=== PATIENT | female | born 1955 | race Caucasian/White ===

== ENCOUNTER 2016-12-16 17:15 | Emergency (ER) | payer BC ==
[2016-12-16 19:30] VITALS: BP 139/74
--- NOTE | 2016-12-16 19:46 | UC ---
Ear Complaint HPI - HPI Summary HPI Summary: ears plugged x weeks r>l no uri symtpoms - History of Current Complaint Chief Complaint: UCEar Stated Complaint: EAR PAIN Time Seen by Provider: 12/16/16 19:38 Hx Obtained From: Patient Onset/Duration: Gradual Onset, Lasting Weeks Severity Currently: None Pain Intensity: 0 Pain Scale Used: 0-10 Numeric Aggravating Factors: Nothing Alleviating Factors: Nothing Associated Signs/Symptoms: Positive: Hearing Loss - Allergies/Home Medications Allergies/Adverse Reactions: Allergies Allergy/AdvReac Type Severity Reaction Status Date / Time No Known Allergies Allergy Verified 12/16/16 19:30 Home Medications: Home Medications NK [No Home Medications Reported] 12/16/16 [History Confirmed 12/16/16] PMH/Surg Hx/FS Hx/Imm Hx Previously Healthy: Yes - Surgical History Surgical History: Yes Surgery Procedure, Year, and Place: Bunionectomy, ~2005; Tubal Ligation, 1984 - Family History Known Family History: Positive: Diabetes - Social History Alcohol Use: Occasionally Substance Use Type: None Smoking Status (MU): Never Smoked Tobacco - Immunization History Most Recent Influenza Vaccination: none Review of Systems Constitutional: Negative Skin: Negative Eyes: Negative ENT: Ear Ache - no pain/decreased hearing and fullness Respiratory: Negative Cardiovascular: Negative Gastrointestinal: Negative Genitourinary: Negative Motor: Negative Neurovascular: Negative Musculoskeletal: Negative Neurological: Negative Psychological: Negative All Other Systems Reviewed And Are Negative: Yes Physical Exam Triage Information Reviewed: Yes Appearance: Well-Appearing, No Pain Distress, Well-Nourished Vital Signs: Initial Vital Signs Temp 97.8 F 12/16/16 19:26 Pulse 71 12/16/16 19:26 Resp 16 12/16/16 19:26 BP 139/74 12/16/16 19:26 Pulse Ox 97 12/16/16 19:26 Eye Exam: Normal Eyes: Positive: Conjunctiva Clear ENT: Positive: TMs normal - unable to visualize due to cerumen. Negative: Hearing grossly normal, Nasal congestion, Nasal drainage, Tonsillar swelling, Tonsillar exudate, Trismus, Muffled/hoarse voice Neck: Positive: Supple, Nontender, No Lymphadenopathy Respiratory: Positive: Lungs clear, Normal breath sounds, No respiratory distress Cardiovascular: Positive: RRR Musculoskeletal: Positive: ROM Intact, No Edema Neurological: Positive: Alert Psychological Exam: Normal Skin Exam: Normal Ear Complaint Course/Dx - Course Course Of Treatment: TMs normal aafter flush - Differential Dx/Diagnosis Provider Diagnoses: cerumen impaction bilaterally Discharge - Discharge Plan Condition: Stable Disposition: HOME Patient Education Materials: Cerumen Impaction (ED) Referrals: Theresa Pearson MD [Primary Care Provider] - If Needed Additional Instructions: call for any questions return for any problems
== END 2016-12-16 20:07 | disposition home or self-care (01) ==
LOC: UCCORT 17:15
DX: H61.23 Impacted cerumen, bilateral (principal)
CPT/HCPCS: 99213; G0463

== ENCOUNTER 2017-02-24 17:04 | Emergency (ER) | payer SELFPAY ==
[2017-02-24 18:34] VITALS: BP 146/68
[2017-02-24] MEDS ORDERED: Ketorolac INJ* 60 MG/2 ML VIAL IM ONE (18:53)
--- NOTE | 2017-02-24 18:59 | UC ---
Lower Extremity/Ankle HPI - HPI Summary HPI Summary: pt reports taht she was walking across a carpeted floor onto a non carpeted area and her right foot slippe dout form under her and resulted in her doing a "split" . pt felt immediate onset of pain in right upper buttock that has remained constant since onset. - History of Current Complaint Chief Complaint: UCLowerExtremity Stated Complaint: PULLED MUSCLE IN BUTTOCK Time Seen by Provider: 02/24/17 18:37 Hx Obtained From: Patient ?: No Onset/Duration: Sudden Onset Severity Initially: Mild Severity Currently: Mild Aggravating Factor(s): Other - sitting Alleviating Factor(s): Rest Able to Bear Weight: Yes - Risk Factors Gout Risk Factors: Age Over 40 DVT Risk Factors: Negative Septic Arthritis Risk Factor: Negative - Allergies/Home Medications Allergies/Adverse Reactions: Allergies Allergy/AdvReac Type Severity Reaction Status Date / Time No Known Allergies Allergy Verified 02/24/17 18:30 Home Medications: Home Medications Ibuprofen [Advil] 800 mg PO ONCE PRN 02/24/17 [History Confirmed 02/24/17] PMH/Surg Hx/FS Hx/Imm Hx Previously Healthy: Yes - Surgical History Surgical History: Yes Surgery Procedure, Year, and Place: Bunionectomy, ~2005; Tubal Ligation, 1984 - Family History Known Family History: Positive: Hypertension, Diabetes - Social History Alcohol Use: Occasionally Substance Use Type: None Smoking Status (MU): Never Smoked Tobacco - Immunization History Most Recent Influenza Vaccination: none Review of Systems Constitutional: Negative Skin: Negative Eyes: Negative ENT: Negative Respiratory: Negative Cardiovascular: Negative Gastrointestinal: Negative Genitourinary: Negative Motor: Other - right buttock pain that radiates to mid thigh Neurovascular: Negative Musculoskeletal: Arthralgia - right buttock, Myalgia Neurological: Negative Psychological: Negative All Other Systems Reviewed And Are Negative: Yes Physical Exam Triage Information Reviewed: Yes Appearance: Well-Appearing Vital Signs: Initial Vital Signs Temp 98 F 02/24/17 18:31 Pulse 65 02/24/17 18:31 Resp 16 02/24/17 18:31 BP 146/68 02/24/17 18:31 Pulse Ox 98 02/24/17 18:31 Eye Exam: Normal Neck exam: Normal Respiratory Exam: Normal Cardiovascular Exam: Normal Musculoskeletal Exam: Other Musculoskeletal: Positive: Strength Intact, ROM Intact, Other: - point tenderness right mid/upper buttock Neurological Exam: Normal Psychological Exam: Normal Skin Exam: Normal Lower Extremity Course/Dx - Differential Dx/Diagnosis Differential Diagnosis/HQI/PQRI: Strain Provider Diagnoses: right buttock strain. sciatica Discharge - Discharge Plan Condition: Stable Disposition: HOME Prescriptions: Cyclobenzaprine TAB* [Flexeril 10 MG TAB*] 10 mg PO TID PRN #15 tab PRN Reason: Pain Ibuprofen TAB* [Motrin TAB* 800 MG] 800 mg PO Q8H PRN #15 tab PRN Reason: Pain predniSONE TAB* [Deltasone TAB*] 20 mg PO DAILY #4 tab Patient Education Materials: Muscle Strain (ED), Sciatica (ED) Referrals: Theresa Pearson MD [Primary Care Provider] -
== END 2017-02-24 19:25 | disposition home or self-care (01) ==
LOC: UCCORT 17:04
DX: M79.1 Myalgia (principal); S76.312A Strain of muscle, fascia and tendon of the posterior muscle group at thigh level, left thigh, initial encounter; M54.31 Sciatica, right side; W01.0XXA Fall on same level from slipping, tripping and stumbling without subsequent striking against object, initial encounter; Y93.9 Activity, unspecified; Y92.9 Unspecified place or not applicable; Y99.9 Unspecified external cause status
CPT/HCPCS: 96372; 99212; G0463; J1885

== ENCOUNTER 2018-06-21 07:00 | Day surgery (SDC) | payer BC ==
--- NOTE | 2018-06-15 11:13 | HP ---
AMENDED REPORT NOW INCLUDES DESIGNATED COSIGNER PREOPERATIVE HISTORY AND PHYSICAL: DATE OF SURGERY/ADMISSION: 06/21/18 - [facility] DATE OF OFFICE VISIT/ENCOUNTER: 05/19/18 ATTENDING SURGEON: Meenu Avery MD * (DICTATED BY JIM LOPEZ) PROCEDURE: Medial release right elbow. CHIEF COMPLAINT: Right elbow pain, medial aspect. HISTORY OF PRESENT ILLNESS: This is a 63-year-old female who has had ongoing intermittent pain at the medial aspect of her right elbow for several years. Recently it has become more persistent and has gradually gotten worse. She has failed conservative treatment over the years including physical therapy, cortisone injections, and bracing. She is interested in pursuing surgical intervention for this problem at this time. PAST MEDICAL HISTORY: Unremarkable. PAST SURGICAL HISTORY: 1. Tubal ligation. 2. Bunionectomy, left foot. CURRENT MEDICATIONS: 1. Calcium plus vitamin D 315-200 mg per unit daily. 2. Glucosamine and chondroitin 500 complex twice a day. 3. Multivitamin once a day. ALLERGIES: No known drug allergies. FAMILY MEDICAL HISTORY: Diabetes, colon cancer, stroke. 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 She denies tobacco use and recreational drug use. She does drink alcohol on occasion. REVIEW OF SYSTEMS: Negative for general, cephalic, cardiovascular, respiratory , GI, , other musculoskeletal, integumentary, endocrine, neurologic, and hematologic symptoms. Infectious Disease: Negative for MRSA, hepatitis C, or HIV. PHYSICAL EXAMINATION GENERAL: Well-developed, well-nourished 63-year-old female in no acute distress. VITAL SIGNS: Height 5 feet 6 inches, weight 179 pounds. Pulse rate 78, blood pressure 118/70. HEENT: Normocephalic, atraumatic. Pupils are equal, round, and reactive to light and accommodation. Extraocular movements are intact. NECK: Supple. No palpable lymph nodes. Throat is clear. PULMONARY: Lungs are clear to auscultation bilaterally. No wheezes, rales, or rhonchi. CARDIOVASCULAR: Regular rate and rhythm. S1 and S2. No murmurs, rubs, or gallops. No edema. ABDOMEN: Positive bowel sounds. Soft, nontender. NEUROLOGICAL: Alert and oriented x3. Cranial nerves II through XII are intact. Sensation is intact to light touch. MUSCULOSKELETAL: On exam of her right elbow, there is no visible swelling. Skin is intact. She has full range of motion in elbow flexion and extension, and forearm pronation and supination. Increased pain with wrist flexion against resistance and pronation of the forearm. She has tenderness at the medial epicondyle. Full range of motion of her fingers. Neurovascular function is intact. IMAGING STUDIES: X-rays AP, lateral, and 2 obliques at the right elbow appear normal. IMPRESSION: Right medial epicondylitis. PLAN/RECOMMENDATIONS: The patient is scheduled to undergo a medial release at the right elbow with Dr. Avery on 06/21/18. She will return to the office 10 days postop for followup and suture removal. A prescription for [place] was e- scribed to the patient's pharmacy for postoperative pain management. JIM LOPEZ [id number]/[facility] #: [id number] [place]
[~2018-06-21 07:00] MED LIST: Buffered Lidocaine 0.9% SYRIN* 5 ML/SYR SYRINGE INTRADERM ONE; Dexamethasone IV* 4 MG/ML 1 ML (4 MG) IV SLOW PU ONE; Famotidine IV* 10 MG/ML 2 ML (20 mg) IV ONE
[2018-06-21] MEDS ORDERED: Famotidine IV* 10 MG/ML 2 ML (20 mg) ONE (07:16)
[2018-06-21] MEDS ORDERED: Dexamethasone IV* 4 MG/ML 1 ML (4 MG) ONE (07:16)
[2018-06-21] MEDS ORDERED: Lidocaine 0.5%* 50 ML SDV ONE (07:21)
[2018-06-21] MEDS ORDERED: fentaNYL* 50 MCG/ML 2 ML VIAL (100 MCG VIAL) ONE (07:45)
[2018-06-21] MEDS ORDERED: Midazolam* 1 MG/ML 2 ML VIAL (2 MG) ONE (07:45)
[2018-06-21] MEDS ORDERED: Ondansetron INJ* 2 MG/ML VIAL ONE (08:37)
[2018-06-21] MEDS ORDERED: Propofol* 10 MG/ML 20 ML BTL IV PUSH ONE (08:37)
[2018-06-21] MEDS ORDERED: fentaNYL* 50 MCG/ML 2 ML VIAL (100 MCG VIAL) IV PRN (09:02)
[2018-06-21] MEDS ORDERED: Naloxone* 0.4 MG/ML 1 ML VIAL IV PRN (09:02)
[2018-06-21] MEDS ORDERED: DiMENhydriNATE IV* 50 MG/ML VIAL IV PUSH PRN (09:02)
[2018-06-21] MEDS ORDERED: ROPIVACAINE 5 MG/ML 30 ML BTL (0.5%) ONE (09:06)
[2018-06-21 10:51] VITALS: BP 124/78
--- NOTE | 2018-06-22 09:31 | OP ---
DATE OF OPERATION: 06/21/18 [facility] DATE OF : 59 SURGEON: Meenu Avery MD COOL ROOFING INSTALLER: JIM Aquino ANESTHESIA: General. PRE-OP DIAGNOSIS: Right medial epicondylitis. POST-OP DIAGNOSIS: Right medial epicondylitis. OPERATIVE PROCEDURE: Right elbow medial release. ESTIMATED BLOOD LOSS: Zero. TOURNIQUET TIME: About 30 minutes. 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 She presents for right elbow medial release. She has no nerve symptoms. DESCRIPTION OF PROCEDURE: The patient was brought to the operating room and was given a general anesthetic and placed in the supine position on the operating table with a tourniquet around her right upper arm. Skin of her right upper extremity was prepped and draped in the usual sterile fashion. The upper extremity was exsanguinated and the tourniquet elevated to 250 mmHg. A longitudinal incision was made centered at the medical epicondyle. We dissected through the subcutaneous tissue bluntly to the flexor pronator origin. The ulnar nerve was protected and retracted by the surgical tech, Keiko Ferrera. A distally based U-shaped flap was created at the flexor pronator origin and subperiosteally dissected off of the medical epicondyle. The underlying degenerated tissue was debrided and sent for pathology. The ulnar nerve was released a little bit through the cubital tunnel and the medical epicondyle was debrided with a rongeur. The wound was irrigated, then the flexor pronator origin was repaired with #1 Vicryl suture in a lengthened fashion and secured back to the bleeding bed of the medial epicondyle as well. With range of motion, there is no subluxation of the ulnar nerve. The wound was irrigated and the subcutaneous tissue closed with 3-0 Polysorb and the skin was closed with skin rosa maria and the wound was dressed with Xeroform, 4x4, Webril, and an Addison wrap. The patient tolerated the procedure well and was brought to the recovery room in good condition. [id number]/[facility] #: [id number] MTDSameera
== END 2018-06-21 10:52 | disposition home or self-care (01) ==
LOC: OREAST 07:00
PROVIDERS: ATTEND Orthopaedic Surgery
DX: M77.01 Medial epicondylitis, right elbow (principal)
CPT/HCPCS: 88304; 88311; J1100; J2250; J2405; J2704; J2795; J3010